=== PATIENT | male | born 2000 | race Caucasian/White ===

== ENCOUNTER 2021-12-23 05:28 | Emergency (ER) | payer OTHER ==
[~2021-12-23] VITALS: Ht 175.3 cm; Wt 61.2 kg
[2021-12-23 05:40] VITALS: BP 109/60
[2021-12-23 06:11] VITALS: BP 109/60
== END 2021-12-23 06:11 | disposition home or self-care (01) ==
LOC: MED 05:28
DX: L29.9 Pruritus, unspecified (principal); R51.9 Headache, unspecified; J45.909 Unspecified asthma, uncomplicated; F12.90 Cannabis use, unspecified, uncomplicated
CPT/HCPCS: 99281